=== PATIENT | female | born 1960 | race Caucasian/White ===

== ENCOUNTER 2020-09-22 11:58 | Emergency (ER) | payer OTHER ==
[~2020-09-22] VITALS: Ht 160 cm; Wt 86.2 kg
[2020-09-22] MEDS ORDERED: INDAPAMIDE2.5 MG PO (12:19)
[2020-09-22] MEDS ORDERED: ZESTRIL40 M1 PO (12:20)
[2020-09-22] MEDS ORDERED: ADULT LOW DOSE81 M1 PO (12:20)
[2020-09-22] MEDS ORDERED: TOPROL XL50 M1 PO (12:20)
[2020-09-22] MEDS ORDERED: SKELAXIN800 MG PO (16:14)
[2020-09-22] MEDS ORDERED: KETO10TA2 PO (16:14)
== END 2020-09-22 16:44 | disposition home or self-care (01) ==
LOC: ER 11:58
DX: S20.213A Contusion of bilateral front wall of thorax, initial encounter (principal); W18.39XA Other fall on same level, initial encounter; Y93.89 Activity, other specified; Y92.89 Other specified places as the place of occurrence of the external cause; Y99.8 Other external cause status